=== PATIENT | male | born 2000 | race Caucasian/White ===

== ENCOUNTER 2018-09-02 15:03 | Emergency (ER) | payer OTHER, SELFPAY ==
--- NOTE | 2018-09-02 15:38 | RAD ---
Right knee 4 views HISTORY: Right knee injury. FINDINGS: Joint spaces are preserved. No acute fracture, dislocation, or fluid distention of the supr apatellar bursa. IMPRESSION: No acute osseous abnormalities are demonstrated.
== END 2018-09-02 16:05 | disposition home or self-care (01) ==
LOC: ERS 15:03
DX: M25.561 Pain in right knee (principal); F17.210 Nicotine dependence, cigarettes, uncomplicated

== ENCOUNTER 2020-06-03 11:12 | Emergency (ER) | payer SELFPAY ==
--- NOTE | 2020-06-03 11:52 | RAD ---
EXAM: XR Finger(s) Lt Min 2 View DATE: 06/03/2020 11:32 AM INDICATION: Left ring finger injury COMPARISON: None. FINDING: No displaced fracture is evident. No radiopaque foreign bodies noted. There is soft tissue swelling of the left ring finger. IMPRESSION:Soft tissue swelling the left ring finger. No displaced fracture.
== END 2020-06-03 12:42 | disposition home or self-care (01) ==
LOC: ERS 11:12
DX: S69.92XA Unspecified injury of left wrist, hand and finger(s), initial encounter (principal); F17.210 Nicotine dependence, cigarettes, uncomplicated; X58.XXXA Exposure to other specified factors, initial encounter; Y93.67 Activity, basketball

== ENCOUNTER 2020-08-02 14:19 | Emergency (ER) | payer SELFPAY ==
[2020-08-02 23:26] LABS: SARS-CoV-2 PCR by NAA Not Detected (NotDetected)
== END 2020-08-02 15:26 | disposition home or self-care (01) ==
LOC: ERS 14:19
DX: R05 Cough (principal); R50.9 Fever, unspecified; M79.10 Myalgia, unspecified site; Z20.822 Contact with and (suspected) exposure to COVID-19; F17.210 Nicotine dependence, cigarettes, uncomplicated
CPT/HCPCS: 87635; 99283; U0003; U0005

== ENCOUNTER 2021-05-31 17:29 | Emergency (ER) | payer OTHER, SELFPAY ==
[2021-05-31] MEDS ORDERED: Boostrix 0.5 ML (Tdap) VIAL ONE (18:46)
== END 2021-05-31 19:12 | disposition home or self-care (01) ==
LOC: ERS 17:29
DX: S91.332A Puncture wound without foreign body, left foot, initial encounter (principal); F17.210 Nicotine dependence, cigarettes, uncomplicated; W22.8XXA Striking against or struck by other objects, initial encounter
CPT/HCPCS: 90471; 90715

== ENCOUNTER 2022-05-22 22:07 | Emergency (ER) | payer OTHER, SELFPAY ==
[2022-05-22] MEDS ORDERED: Fluorescein Opthalmic Strip ONE (22:31)
[2022-05-22] MEDS ORDERED: Proparacaine 0.5% Opth 15 ML BOT ONE (22:33)
== END 2022-05-22 23:49 | disposition home or self-care (01) ==
LOC: ERS 22:07
DX: H16.001 Unspecified corneal ulcer, right eye (principal); F17.290 Nicotine dependence, other tobacco product, uncomplicated
CPT/HCPCS: 99283